=== PATIENT | female | born 1970 | race Two or more races ===

== ENCOUNTER 2021-09-17 09:46 | Emergency (ER) | payer OTHER ==
[~2021-09-17] VITALS: Ht 172.7 cm; Wt 83.9 kg
[2021-09-17] MEDS ORDERED: TAMS0.4C PO (13:49)
[2021-09-17] MEDS ORDERED: CIPRO500 MG PO (13:49)
== END 2021-09-17 14:13 | disposition home or self-care (01) ==
LOC: ER 09:46
DX: N20.0 Calculus of kidney (principal); Z88.6 Allergy status to analgesic agent